=== PATIENT | male | born 1935 | race African-American/Black ===

== ENCOUNTER 2016-12-01 23:41 | Emergency (ER) | payer OTHER ==
[~2016-12-01 23:41] MED LIST: *DENIES; ASAB PO; AUG500 PO; DSS PO; MEDROLPAK4 PO; MONODOX100 MG PO; PCET PO; PROAIR HFA INH
== END 2016-12-02 02:59 | disposition home or self-care (01) ==
LOC: ER 23:41
DX: M54.9 Dorsalgia, unspecified (principal); J44.9 Chronic obstructive pulmonary disease, unspecified; F17.200 Nicotine dependence, unspecified, uncomplicated; Z79.899 Other long term (current) drug therapy
CPT/HCPCS: 99283